=== PATIENT | male | born 1995 | race American Indian/Alaskan Native ===

== ENCOUNTER 2017-11-14 19:19 | Emergency (ER) | payer OTHER ==
[2017-11-14 19:32] VITALS: BP 136/78
[2017-11-14] MEDS ORDERED: MOTRIN PO ONE (23:06)
[2017-11-14] MEDS ORDERED: FLEXERIL PO ONE (23:06)
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
== END 2017-11-15 00:10 | disposition home or self-care (01) ==
LOC: ED 19:19
DX: S16.1XXA Strain of muscle, fascia and tendon at neck level, initial encounter (principal); S39.012A Strain of muscle, fascia and tendon of lower back, initial encounter; S29.011A Strain of muscle and tendon of front wall of thorax, initial encounter; F12.10 Cannabis abuse, uncomplicated; V87.7XXA Person injured in collision between other specified motor vehicles (traffic), initial encounter; X58.XXXA Exposure to other specified factors, initial encounter; Y93.89 Activity, other specified; Y99.8 Other external cause status; Y92.410 Unspecified street and highway as the place of occurrence of the external cause
CPT/HCPCS: 99282